=== PATIENT | male | born 1975 | race Hispanic/Latino ===

== ENCOUNTER 2018-06-10 00:02 | Emergency (ER) | payer BC ==
[2018-06-10] MEDS ORDERED: NA CHLORIDE 0.9% 1,000 ML ONE (01:13)
[2018-06-10 02:20] LABS: Absolute Neutrophil 9.4 K/uL (1.8-8.0); Basophils % 0.3 % (0-1.3); Eosinophils % 5.4 % (0-4.4); Hematocrit 50.6 % (39.6-49.0); Lymphocytes % 15.5 % (15.3-44.8); MPV 7.6 fL (7.6-11.3); Monocytes % 7.4 % (3.3-12.3); Protime INR 1.02; RBC Red Blood Cell Count 5.77 M/uL (4.33-5.43)
[2018-06-10 02:40] LABS: ALT/SGPT 39 U/L (12-78); AST/SGOT 36 U/L (15-37); Alkaline Phosphatase 73 U/L (45-117); BUN Blood Urea Nitrogen 20 mg/dL (7-18); Bicarbonate 26 mmol/L (21-32); Bilirubin Direct 0.1 mg/dL (0-0.2); Bilirubin Total 0.6 mg/dL (0.2-1.0); Glucose Level 115 mg/dL (74-106); Magnesium 2.2 mg/dL (1.8-2.4); NT PRO-BNP 7 pg/mL (<125); Potassium 3.7 mmol/L (3.5-5.1); Protein, Total 7.8 g/dL (6.4-8.2); Sodium Level 140 mmol/L (136-145); Troponin (Emerg Dept Use Only) < 0.02 ng/mL (0.0-0.045)
[2018-06-10] MEDS ORDERED: FAMOTIDINE 20 MG/2 ML VIAL IV ONE (04:54)
[2018-06-10] MEDS ORDERED: ONDANSETRON 4 MG/2 ML VIAL ONE (04:54)
--- NOTE | 2018-06-10 06:18 | ER ---
Nurse's Notes [facility] Name: Yves Sousa Age: 43 yrs Sex: Male : 1975 Arrival Date: 06/10/2018 Time: 00:03 Bed 19 Private MD: Diagnosis: Gastritis, unspecified, with bleeding;Vomiting, unspecified Presentation: 06/10 00:30 Presenting complaint: Patient states: "since a week now I've been vomiting mucus and cc3 today there's a streak of blood in my vomitus. I've also been having chest pressure and pain to my left upper abdominal area". Transition of care: patient was not received from another setting of care. Onset of symptoms was June 10, 2018. Risk Assessment: Do you want to hurt yourself or someone else? Patient reports no desire to harm self or others. Initial Sepsis Screen: Does the patient meet any 2 criteria? No. Patient's initial sepsis screen is negative. Does the patient have a suspected source of infection? No. Patient's initial sepsis screen is negative. Care prior to arrival: None. 00:30 Method Of Arrival: Ambulatory cc3 00:30 Acuity: WILMER 3 cc3 Triage Assessment: 00:30 General: Appears in no apparent distress. uncomfortable, Behavior is calm, cooperative, cc3 appropriate for age. Pain: Complains of pain in chest Quality of pain is described as pressure, Pain began suddenly. EENT: No signs and/or symptoms were reported regarding the EENT system. Neuro: Level of Consciousness is awake, alert, obeys commands, Oriented to person, place, time, situation, Appropriate for age. Cardiovascular: Patient's skin is warm and dry. Respiratory: Airway is patent Respiratory effort is even, unlabored, Respiratory pattern is regular, symmetrical. GI: Abdomen is round non-distended, Reports upper abdominal pain, vomiting, since a week. : No signs and/or symptoms were reported regarding the genitourinary system. Derm: No signs and/or symptoms reported regarding the dermatologic system. Musculoskeletal: Circulation, motion, and sensation intact. Range of motion: intact in all extremities. Historical: - Allergies: 00:30 No Known Allergies; cc3 - Home Meds: 00:30 clarithromycin 500 mg Oral tab 1 tab every 12 hours [Active]; ondansetron HCl 8 mg Oral cc3 tab PRN [Active]; - PSHx: 00:30 Appendectomy; right knee surgery; cc3 - Immunization history:: Adult Immunizations not up to date. - Social history:: Smoking status: Patient/guardian denies using tobacco, never smoked. - Ebola Screening: : No symptoms or risks identified at this time. Screenin:30 Abuse screen: Denies threats or abuse. Denies injuries from another. Nutritional cc3 screening: No deficits noted. Tuberculosis screening: No symptoms or risk factors identified. Fall Risk Ambulatory Aid- None/Bed Rest/Nurse Assist (0 pts). Gait- Normal/Bed Rest/Wheelchair (0 pts) Mental Status- Oriented to own ability (0 pts). Assessment: 00:30 General: see triage assessment. cc3 01:18 Reassessment: Patient appears in no apparent distress at this time. Patient and/or cc3 family updated on plan of care and expected duration. Pain level reassessed. Patient is alert, oriented x 3, equal unlabored respirations, skin warm/dry/pink. 02:27 Reassessment: Patient appears in no apparent distress at this time. Patient and/or cc3 family updated on plan of care and expected duration. Pain level reassessed. Patient is alert, oriented x 3, equal unlabored respirations, skin warm/dry/pink. 03:25 Reassessment: Patient appears in no apparent distress at this time. Patient and/or cc3 family updated on plan of care and expected duration. Pain level reassessed. Patient is alert, oriented x 3, equal unlabored respirations, skin warm/dry/pink. 04:22 Reassessment: Patient appears in no apparent distress at this time. Patient and/or cc3 family updated on plan of care and expected duration. Pain level reassessed. Patient is alert, oriented x 3, equal unlabored respirations, skin warm/dry/pink. 05:15 Reassessment: Patient appears in no apparent distress at this time. Patient and/or cc3 family updated on plan of care and expected duration. Pain level reassessed. Patient is alert, oriented x 3, equal unlabored respirations, skin warm/dry/pink. 06:18 Reassessment: Patient appears in no apparent distress at this time. Patient and/or cc3 family updated on plan of care and expected duration. Pain level reassessed. Patient is alert, oriented x 3, equal unlabored respirations, skin warm/dry/pink. 06:30 Reassessment: Patient appears in no apparent distress at this time. Patient and/or cc3 family updated on plan of care and expected duration. Pain level reassessed. Patient is alert, oriented x 3, equal unlabored respirations, skin warm/dry/pink. Dr. Aleman discharged home the patient with prescription given. IV cannula removed and patient left ER vitally stable and ambulatory. Patient denies pain at this time. Patient states feeling better. Patient states symptoms have improved. Vital Signs: 00:30 BP 133 / 95; Pulse 104; Resp 20 S; Temp 98.4(O); Pulse Ox 93% on R/A; Weight 95.25 kg cc3 (R); Height 5 ft. 8 in. (172.72 cm) (R); Pain 8/10; 01:30 BP 131 / 86; Pulse 96; Resp 18 S; Pulse Ox 97% on 2 lpm NC; cc3 02:00 BP 135 / 80; Pulse 97; Resp 17 S; Pulse Ox 96% on 2 lpm NC; cc3 03:25 BP 133 / 84; Pulse 93; Resp 18 S; Pulse Ox 97% on 2 lpm NC; cc3 04:15 BP 140 / 87; Pulse 92; Resp 17 S; Pulse Ox 97% on 2 lpm NC; cc3 05:17 BP 130 / 80; Pulse 85; Resp 17 S; Pulse Ox 98% on 2 lpm NC; cc3 06:18 BP 136 / 58; Pulse 86; Resp 18 S; Pulse Ox 99% on 2 lpm NC; cc3 00:30 Body Mass Index 31.93 (95.25 kg, 172.72 cm) cc3 ED Course: 00:03 Patient arrived in ED. do 00:30 Arm band placed on right wrist. Patient notified of wait time. cc3 00:30 Patient has correct armband on for positive identification. Placed in gown. Bed in low cc3 position. Call light in reach. Side rails up X2. cloth pattern maker on. Pulse ox on. NIBP on. 00:39 Brenda Martinez is Primary Nurse. cc3 00:53 Diogo Aleman MD is Attending Physician. tw4 00:53 XRAY Chest (1 view) In Process Unspecified. EDMS 00:56 Triage completed. cc3 01:10 Inserted saline lock: 20 gauge in right antecubital area, using aseptic technique. cc3 Blood collected. 06:30 No provider procedures requiring assistance completed. IV discontinued, intact, cc3 bleeding controlled, No redness/swelling at site. Pressure dressing applied. Administered Medications: 01:10 Drug: NS 0.9% 1000 ml Route: IV; Rate: 75 ml/hr; Site: right antecubital; cc3 04:40 Drug: Pepcid 20 mg Route: IVP; Site: right antecubital; cc3 05:30 Follow up: Response: No adverse reaction; Pain is decreased cc3 04:45 Drug: Zofran 4 mg Route: IVP; Site: right antecubital; cc3 05:30 Follow up: Response: No adverse reaction; Nausea is decreased cc3 Outcome: 06:18 Discharge ordered by . wesly 06:30 Discharged to home ambulatory. cc3 06:30 Condition: stable 06:30 Discharge instructions given to patient, Instructed on discharge instructions, follow up and referral plans. medication usage, Demonstrated understanding of instructions, follow-up care, medications, Prescriptions given X 2. 06:33 Patient left the ED. cc3 Signatures: Dispatcher [employer] EDMS Belkis Tilley Terrence, MD MD tw4 Brenda Martinez cc3
--- NOTE | 2018-06-10 06:18 | EDPHYS ---
Physician Documentation [facility] Name: Yves Sousa Age: 43 yrs Sex: Male : 1975 Arrival Date: 06/10/2018 Time: 00:03 Bed 19 Private MD: ED Physician Diogo Aleman HPI: 06/10 04:48 This 43 yrs old Male presents to ER via Ambulatory with complaints of Vomiting.tw4 04:48 The patient presents to the emergency department with nausea, that is mild, vomiting. tw4 Onset: The symptoms/episode began/occurred today. The symptoms are aggravated by nothing. The symptoms are alleviated by nothing. Associated signs and symptoms: The patient has no apparent associated signs or symptoms. Severity of symptoms: At their worst the symptoms were moderate in the emergency department the symptoms are unchanged. The patient has not experienced similar symptoms in the past. Historical: - Allergies: 00:30 No Known Allergies; cc3 - Home Meds: 00:30 clarithromycin 500 mg Oral tab 1 tab every 12 hours [Active]; ondansetron HCl 8 mg Oral cc3 tab PRN [Active]; - PSHx: 00:30 Appendectomy; right knee surgery; cc3 - Immunization history:: Adult Immunizations not up to date. - Social history:: Smoking status: Patient/guardian denies using tobacco, never smoked. - Ebola Screening: : No symptoms or risks identified at this time. ROS: 04:48 Constitutional: Negative for fever, chills, and weight loss, Eyes: Negative for injury, tw4 pain, redness, and discharge, Cardiovascular: Negative for chest pain, palpitations, and edema, Respiratory: Negative for shortness of breath, cough, wheezing, and pleuritic chest pain, Back: Negative for injury and pain, MS/Extremity: Negative for injury and deformity, Skin: Negative for injury, rash, and discoloration. 04:48 Abdomen/GI: Positive for abdominal pain, nausea and vomiting, nausea, vomiting, and diarrhea, nausea, vomiting, Negative for abdominal cramps, abdominal distension, anorexia, dysphagia, hematemesis, black/tarry stool, rectal pain, rectal bleeding. Exam: 04:49 Constitutional: This is a well developed, well nourished patient who is awake, alert, tw4 and in no acute distress. Head/Face: Normocephalic, atraumatic. Chest/axilla: Normal chest wall appearance and motion. Nontender with no deformity. No lesions are appreciated. Cardiovascular: Regular rate and rhythm with a normal S1 and S2. No gallops, murmurs, or rubs. Normal PMI, no JVD. No pulse deficits. Respiratory: Lungs have equal breath sounds bilaterally, clear to auscultation and percussion. No rales, rhonchi or wheezes noted. No increased work of breathing, no retractions or nasal flaring. Abdomen/GI: Soft, non-tender, with normal bowel sounds. No distension or tympany. No guarding or rebound. No evidence of tenderness throughout. Back: No spinal tenderness. No costovertebral tenderness. Full range of motion. MS/ Extremity: Pulses equal, no cyanosis. Neurovascular intact. Full, normal range of motion. Neuro: Awake and alert, GCS 15, oriented to person, place, time, and situation. Cranial nerves II-XII grossly intact. Motor strength 5/5 in all extremities. Sensory grossly intact. Cerebellar exam normal. Normal gait. Vital Signs: 00:30 BP 133 / 95; Pulse 104; Resp 20 S; Temp 98.4(O); Pulse Ox 93% on R/A; Weight 95.25 kg cc3 (R); Height 5 ft. 8 in. (172.72 cm) (R); Pain 8/10; 01:30 BP 131 / 86; Pulse 96; Resp 18 S; Pulse Ox 97% on 2 lpm NC; cc3 02:00 BP 135 / 80; Pulse 97; Resp 17 S; Pulse Ox 96% on 2 lpm NC; cc3 03:25 BP 133 / 84; Pulse 93; Resp 18 S; Pulse Ox 97% on 2 lpm NC; cc3 04:15 BP 140 / 87; Pulse 92; Resp 17 S; Pulse Ox 97% on 2 lpm NC; cc3 05:17 BP 130 / 80; Pulse 85; Resp 17 S; Pulse Ox 98% on 2 lpm NC; cc3 06:18 BP 136 / 58; Pulse 86; Resp 18 S; Pulse Ox 99% on 2 lpm NC; cc3 00:30 Body Mass Index 31.93 (95.25 kg, 172.72 cm) cc3 MDM: 01:35 Patient medically screened. tw4 06:18 Differential diagnosis: Nonspecific abd pain, gastritis, cholecystitis. Data reviewed: tw4 vital signs, nurses notes. Data interpreted: shelter monitor: rhythm is normal sinus rhythm, Pulse oximetry: Interpretation: normal. Counseling: I had a detailed discussion with the patient and/or guardian regarding: the historical points, exam findings, and any diagnostic results supporting the discharge/admit diagnosis. Medication response: Response to treatment: the patient's symptoms have resolved after treatment, the patient's pain is gone, and as a result, I will discharge patient. Special discussion: I discussed with the patient/guardian in detail that at this point there is no indication for admission to the hospital. It is understood, however, that if the symptoms persist or worsen the patient needs to return immediately for re-evaluation. 06/10 00:33 Order name: Basic Metabolic Panel w 06/10 00:33 Order name: CBC with Diff w 06/10 00:33 Order name: LFT's w 06/10 00:33 Order name: Magnesium snw 06/10 00:33 Order name: NT PRO-BNP; Complete Time: 04:32 snw 06/10 04:32 Interpretation: Normal except: NT PRO-BNP 7. tw06/10 00:33 Order name: PT-INR; Complete Time: 04:32 snw 06/10 04:32 Interpretation: Within normal limits: PT 12.0. 06/10 00:33 Order name: Troponin (emerg Dept Use Only); Complete Time: 04:32 snw 06/10 04:32 Interpretation: Within normal limits: TROPED < 0.02. 06/10 00:33 Order name: DD; Complete Time: 04:32 snw 06/10 04:32 Interpretation: Within normal limits: D-DIMER 335. 06/10 00:33 Order name: Blood Culture Adult (2) snw 06/10 00:33 Order name: TS w 06/10 00:33 Order name: TSH snw 06/10 00:34 Order name: Basic Metabolic Panel; Complete Time: 04:31 EDMS 06/10 04:31 Interpretation: Normal except: GLUC 115; BUN 20; GFR 63. tw06/10 00:34 Order name: CBC with Automated Diff; Complete Time: 04:31 EDMS 06/10 04:31 Interpretation: Normal except: WBC 13.2; RBC 5.77; HCT 50.6. tw4 06/10 00:34 Order name: Liver (Hepatic) Function; Complete Time: 04:31 EDMS 04 04:31 Interpretation: Normal except: GLOB 3.8. tw4 06/10 00:33 Order name: XRAY Chest (1 view) snw 06/10 00:33 Order name: EKG; Complete Time: 00:35 snw 06/10 00:33 Order name: Cardiac monitoring; Complete Time: 00:46 snw 06/10 00:33 Order name: EKG - Nurse/Tech; Complete Time: 00:46 snw 06/10 00:33 Order name: IV Saline Lock; Complete Time: snw 06/10 00:33 Order name: Labs collected and sent; Complete Time: : snw 06/10 00:33 Order name: O2 Per Protocol; Complete Time: 00:46 snw 06/10 00:33 Order name: O2 Sat Monitoring; Complete Time: 00:46 snw 06/10 05:51 Order name: ABO/RH no charge EDMS EC:02 Rate is 96 beats/min. Rhythm is regular. QRS [place] is Normal. UT interval is normal. QRS tw4 interval is normal. QT interval is normal. No Q waves. T waves are Normal. No ST changes noted. Clinical impression: Normal ECG. Reviewed by me. Administered Medications: 01:10 Drug: NS 0.9% 1000 ml Route: IV; Rate: 75 ml/hr; Site: right antecubital; cc3 04:40 Drug: Pepcid 20 mg Route: IVP; Site: right antecubital; cc3 05:30 Follow up: Response: No adverse reaction; Pain is decreased cc3 04:45 Drug: Zofran 4 mg Route: IVP; Site: right antecubital; cc3 05:30 Follow up: Response: No adverse reaction; Nausea is decreased cc3 Disposition: 06/10/18 06:18 Discharged to Home. Impression: Gastritis, unspecified, with bleeding, Vomiting, unspecified. - Condition is Stable. - Discharge Instructions: Nausea and Vomiting, Adult, Gastritis, Adult, [id number], Nausea and Vomiting, Adult, [id number]. - Prescriptions for Protonix 40 mg Oral Tablet - take 1 tablet by ORAL route once daily; 30 tablet. Zofran 4 mg Oral Tablet - take 1 tablet by ORAL route every 12 hours As needed; 6 tablet. - Medication Reconciliation Form, Thank You Letter, Antibiotic Education, Prescription Opioid Use, Work release form form. - Follow up: Private Physician; When: Upon discharge from the Emergency Department; Reason: If symptoms return, Recheck today's complaints, Continuance of care. - Problem is new. - Symptoms have improved. Signatures: Dispatcher [employer] EDMS Landy Le, LUCRECIA-C MILK OF LIME SLAKER-Csnw Diogo Aleman MD MD tw4 Brenda Martinez cc3 Corrections: (The following items were deleted from the chart) 06:33 06:18 06/10/2018 06:18 Discharged to Home. Impression: Gastritis, unspecified, with cc3 bleeding; Vomiting, unspecified. Condition is Stable. Forms are Medication Reconciliation Form, Thank You Letter, Antibiotic Education, Prescription Opioid Use. Follow up: Private Physician; When: Upon discharge from the Emergency Department; Reason: If symptoms return, Recheck today's complaints, Continuance of care. Problem is new. Symptoms have improved. tw4
--- NOTE | 2018-06-10 07:42 | EKG ---
Test Date: 2018-06-10 Test Time: 00:35:08 Infrastructure Software Engineer: MEASUREMENT RESULTS: Intervals: Rate: 96 MD: 134 QRSD: 80 QT: 342 QTc: 432 Mcgregor: P: 63 MD: 134 QRS: -3 T: 43 INTERPRETIVE STATEMENTS: Normal sinus rhythm Normal ECG No previous ECG available for comparison Electronically Signed On 06-10-18 07:41:51 CDT by Tyree Chappell
--- NOTE | 2018-06-10 09:05 | RAD REPORT ---
EXAM DESCRIPTION: RAD - Chest Single View - 06/10/2018 12:53 am CLINICAL HISTORY: Chest pain COMPARISON: None. TECHNIQUE: AP portable chest image was obtained 0048 hour . FINDINGS: Lung volumes are low. No focal lung parenchymal process. No significant failure or volume overload. Heart and vasculature are normal. No measurable pleural effusion and no pneumothorax. No ac bennie bony abnormality seen. No acute aortic findings suspected. IMPRESSION: No acute cardiopulmonary process.
== END 2018-06-10 06:33 | disposition home or self-care (01) ==
LOC: ER 00:02
DX: K29.71 Gastritis, unspecified, with bleeding (principal)
CPT/HCPCS: 36415; 71045; 80048; 80076; 83735; 83880; 84443; 84484; 85025; 85379; 85610; 86850; 86900; 86901; 87040; 93005; 96374; 96375; 99284; J2405; J7030

== ENCOUNTER 2020-11-30 20:44 | Emergency (ER) | payer BC ==
[2020-11-30 21:40] LABS: Basophils % 0.5 % (0-1.3); Hematocrit 41.7 % (39.6-49.0); MPV 6.7 fL (7.6-11.3); RBC Red Blood Cell Count 5.62 M/uL (4.33-5.43)
[2020-11-30] MEDS ORDERED: NA CHLORIDE 0.9% 1,000 ML ONE ×2 (21:42→23:25)
[2020-11-30 21:43] LABS: Protime INR 1.13
[2020-11-30] MEDS ORDERED: LORazepam 2 MG/ML VIAL ONE (21:52)
[2020-11-30 21:55] LABS: ALT/SGPT 34 U/L (12-78); AST/SGOT 16 U/L (15-37); Albumin 4.1 g/dL (3.4-5.0); Alkaline Phosphatase 61 U/L (45-117); BUN Blood Urea Nitrogen 14 mg/dL (7-18); Bicarbonate 30 mmol/L (21-32); Bilirubin Direct 0.2 mg/dL (0-0.2); Bilirubin Total 0.6 mg/dL (0.2-1.0); Glucose Level 168 mg/dL (74-106); Magnesium 2.2 mg/dL (1.8-2.4); Potassium 3.4 mmol/L (3.5-5.1); Protein, Total 8.1 g/dL (6.4-8.2); Sodium Level 140 mmol/L (136-145); Troponin (Emerg Dept Use Only) < 0.02 ng/mL (0.0-0.045)
[2020-11-30 22:12] LABS: Urine Blood Negative (Negative); Urine Glucose Negative (Negative); Urine Protein Negative (Negative); Urine pH 8.5 (5.0-7.0)
[2020-11-30 22:40] LABS: Barbiturates NEGATIVE (NEGATIVE); Benzodiazepines NEGATIVE (NEGATIVE); Cocaine NEGATIVE (NEGATIVE); METHAMPHETAM NEGATIVE (NEGATIVE); Methadone NEGATIVE (NEGATIVE); Opiates NEGATIVE (NEGATIVE); Phencyclidine NEGATIVE (NEGATIVE); THC Cannibis NEGATIVE (NEGATIVE)
[2020-12-01] MEDS ORDERED: POTASSIUM 25 MEQ EFFERV TAB ONE (00:31)
[2020-12-01] MEDS ORDERED: METOPROLOL TAR 25 MG TAB ONE (01:16)
--- NOTE | 2020-12-01 02:19 | ER ---
Nurse's Notes [facility] Name: Yves Sousa Age: 45 yrs Sex: Male : 1975 Arrival Date: 11/30/2020 Time: 20:48 Bed 7 Private MD: Diagnosis: Elevated blood-pressure reading, without diagnosis of hypertension;Hyperglycemia, unspecified Presentation: 11/30 20:59 Chief complaint: Patient states: Reports feeling bad about 1800 this evening, feeling lp1 light headed, anxious; Reports check BP at [facility] and reports 193/122; reports taking diet pill x 2 months, no other hx. Coronavirus screen: At this time, the client does not indicate any symptoms associated with coronavirus-19. Ebola Screen: No symptoms or risks identified at this time. Risk Assessment: Do you want to hurt yourself or someone else? Patient reports no desire to harm self or others. Onset of symptoms was November 30, 2020 at 18:00. 20:59 Method Of Arrival: Ambulatory lp1 20:59 Acuity: WILMER 3 lp1 21:12 Initial Sepsis Screen: Does the patient meet any 2 criteria? No. Patient's initial cw2 sepsis screen is negative. 21:12 Initial Sepsis Screen: Does the patient have a suspected source of infection? No. cw2 Patient's initial sepsis screen is negative. 12/01 02:34 Note PT UP FOR DISCHARGE AT THIS TIME. PT AWAKE ALERT AOX4 AMBULATING ALONE WITH A cw2 STEADY GAIT. DISCHARGE INSTRUCTIONS DISCUSSED WITH PT AND SON. ALL QUESTIONS ANSWERED AND NO CONCERNS VERBALIZED AT THIS TIME. PT ADVISED TO RETURN TO AT ANYTIME. PT ACKNOWLEDGES. IV DC'D. CATHETER FULLY INTACT. PT STABLE ON DISCHARGE. Triage Assessment: 11/30 21:12 General: Appears in no apparent distress. Behavior is calm, cooperative. cw2 Historical: - Allergies: 21:01 No Known Allergies; lp1 - Home Meds: 21:01 "diet pill" [Active]; lp1 - PMHx: 21:01 None; lp1 - PSHx: 21:01 None; lp1 - Immunization history:: Adult Immunizations up to date. - Social history:: Smoking status: Patient denies any tobacco usage or history of. Screenin:01 Abuse screen: Denies threats or abuse. Denies injuries from another. Nutritional lp1 screening: No deficits noted. Tuberculosis screening: No symptoms or risk factors identified. Fall Risk None identified. Assessment: 21:12 General: Appears in no apparent distress. Behavior is calm, cooperative. Pain: Denies cw2 pain. Neuro: No deficits noted. Cardiovascular: No deficits noted. Respiratory: No deficits noted. GI: No deficits noted. Vital Signs: 20:59 Weight 97.98 kg (R); Height 5 ft. 8 in. (172.72 cm); Pain 0/10; lp1 23:38 BP 164 / 107; Pulse 105; Resp 15; Pulse Ox 99% on R/A; cw2 20:59 Body Mass Index 32.84 (97.98 kg, 172.72 cm) lp1 ED Course: 20:48 Patient arrived in ED. ja2 20:50 Stew Yu PA is PHCP. cp 20:50 Morro Osborn MD is Attending Physician. cp 20:55 Cory Bravo RN is Primary Nurse. cw2 21:01 Triage completed. lp1 21:01 Arm band placed on. lp1 21:10 No apparent distress. cw2 21:10 Placed in gown. Bed in low position. Side rails up X2. site monitor on. Pulse ox on. cw2 NIBP on. Door closed. Noise minimized. Lights dimmed. Moved to private room. 21:10 No provider procedures requiring assistance completed. Initial lab(s) drawn, by ED cw2 staff, sent to lab. Inserted saline lock: 20 gauge in right antecubital area, using aseptic technique. Blood collected. 21:18 Basic Metabolic Panel Sent. cw2 21:18 CBC with Automated Diff Sent. cw2 21:18 Basic Metabolic Panel Sent. cw2 21:18 CBC with Diff Sent. cw2 22:03 UDS Sent. cw2 22:19 CT Head Brain wo Cont Sent. wg 22:44 CT Head Brain wo Cont In Process Unspecified. EDMS 23:45 XRAY Chest (1 view) In Process Unspecified. EDMS 12/01 01:30 CT Head Angio In Process Unspecified. EDMS 01:30 CT Neck Angio In Process Unspecified. EDMS 02:33 IV discontinued. cw2 Administered Medications: 11/30 21:14 Drug: NS 0.9% 1000 ml Route: IV; Rate: 1 bolus; Site: right antecubital; cw2 21:29 Drug: Ativan (LORazepam) 0.5 mg Route: IVP; Site: right antecubital; cw2 22:59 Drug: NS 0.9% 1000 ml Route: IV; Rate: 1 bolus; Site: right antecubital; cw2 12/01 00:08 Drug: Potassium Effervescent Tablet 50 mEq Route: PO; cw2 00:51 Drug: Metoprolol 25 mg Route: PO; cw2 Outcome: 11/30 21:10 Condition: good cw2 12/01 02:18 Discharge ordered by . cp 02:33 Discharge instructions given to patient, family, Instructed on discharge instructions, cw2 follow up and referral plans. Demonstrated understanding of instructions, follow-up care, Prescriptions given X 02:34 Discharged to home ambulatory. cw2 02:36 Patient left the ED. cw2 Signatures: Dispatcher [employer] EDMS Josi Moseley RN RN lp1 Stew Yu PA PA Dariel Blackman RN wg Alexander, Jessica [facility] Cory Bravo RN RN cw2
--- NOTE | 2020-12-01 02:19 | EDPHYS ---
Physician Documentation [facility] Name: Yves Sousa Age: 45 yrs Sex: Male : 1975 Arrival Date: 11/30/2020 Time: 20:48 Bed 7 Private MD: ED Physician Morro Osborn HPI: 11/30 21:15 This 45 yrs old Male presents to ER via Ambulatory with complaints of High cp Blood Pressure, Blurred Vision, Dizziness. 21:15 The patient has elevated blood pressure and discovered this at [facility]. cp 21:15 Onset: The symptoms/episode began/occurred today. cp 21:15 Severity of symptoms: At its worst the blood pressure was 193 mm Hg. cp 21:15 Patient reports taking prescribed Phentermine for weight loss, denies any history of cp HTN or being prescribed blood pressure medication in the past. Historical: - Allergies: 21:01 No Known Allergies; lp1 - Home Meds: 21:01 "diet pill" [Active]; lp1 - PMHx: 21:01 None; lp1 - PSHx: 21:01 None; lp1 - Immunization history:: Adult Immunizations up to date. - Social history:: Smoking status: Patient denies any tobacco usage or history of. ROS: 21:20 Neuro: Positive for dizziness, lightheaded, Negative for altered mental status, cp headache, numbness, syncope, tingling, weakness. 21:20 Cardiovascular: Negative for chest pain, palpitations. cp 21:20 Respiratory: Negative for cough, shortness of breath, wheezing. 21:20 Eyes: Negative for injury, pain, redness, and discharge. cp 21:20 Constitutional: Negative for body aches, chills, fever, poor PO intake. 21:20 ENT: Negative for ear pain, sore throat, difficulty swallowing, difficulty handling secretions. 21:20 Neck: Negative for pain with movement, pain at rest, stiffness. 21:20 Abdomen/GI: Negative for abdominal pain, nausea, vomiting, and diarrhea. 21:20 All other systems are negative. Exam: 21:10 ECG was reviewed by the Attending Physician. cp 21:25 Constitutional: The patient appears in no acute distress, alert, awake, cp non-diaphoretic, non-toxic, well developed, well nourished, overweight 21:25 Head/Face: Normocephalic, atraumatic. cp 21:25 Eyes: Periorbital structures: appear normal, Pupils: equal, round, and reactive to light and accomodation, Extraocular movements: intact throughout, Conjunctiva: normal, no exudate, no injection, Sclera: no appreciated abnormality, Lids and lashes: appear normal, bilaterally. 21:25 ENT: External ear(s): are unremarkable, Ear canal(s): are normal, clear, TM's: dullness, bilaterally, Nose: is normal, Mouth: Lips: moist, Oral mucosa: pink and intact, moist, Posterior pharynx: Airway: no evidence of obstruction, patent. 21:25 Neck: ROM/movement: is normal, is supple, without pain, no range of motions limitations, no nuchal rigidity. 21:25 Chest/axilla: Inspection: normal, Palpation: is normal, no crepitus, no tenderness. 21:25 Cardiovascular: Rate: tachycardic, Rhythm: regular, Heart sounds: murmur, not appreciated, Edema: is not appreciated, JVD: is not appreciated. 21:25 Respiratory: the patient does not display signs of respiratory distress, Respirations: normal, no use of accessory muscles, no retractions, labored breathing, is not present, Breath sounds: are clear throughout, no decreased breath sounds, no stridor, no wheezing. 21:25 Abdomen/GI: Inspection: abdomen appears normal, Palpation: abdomen is soft and non-tender, in all quadrants. 21:25 Neuro: Orientation: to person, place \\T\\ time. Mentation: is normal, Cerebellar function: is grossly normal, Motor: moves all fours, strength is normal, Sensation: is normal. Vital Signs: 20:59 Weight 97.98 kg (R); Height 5 ft. 8 in. (172.72 cm); Pain 0/10; lp1 23:38 BP 164 / 107; Pulse 105; Resp 15; Pulse Ox 99% on R/A; cw2 20:59 Body Mass Index 32.84 (97.98 kg, 172.72 cm) lp1 MDM: 21:22 Patient medically screened. cp 22:00 Differential diagnosis: hypertensive crisis, Malignant HTN, CVA, intracerebral cp hemorrhage, illegal drug use. 12/01 02:15 Data reviewed: vital signs, nurses notes, lab test result(s), EKG, radiologic studies, cp CT scan, plain films, and as a result, I will discharge patient. 02:15 Test interpretation: by ED physician or midlevel provider: ECG, plain radiologic cp studies. Counseling: I had a detailed discussion with the patient and/or guardian regarding: the historical points, exam findings, and any diagnostic results supporting the discharge/admit diagnosis, the presence of at least one elevated blood pressure reading (>120/80) during this emergency department visit, lab results, radiology results, the need for outpatient follow up, for definitive care, a family practitioner, to return to the emergency department if symptoms worsen or persist or if there are any questions or concerns that arise at home. Response to treatment: patient is well hydrated. blood pressure improved and patient reports symptoms resolved, and as a result, I will discharge patient. 11/30 21:11 Order name: Basic Metabolic Panel cp 11/30 21:11 Order name: CBC with Diff cp 11/30 21:11 Order name: LFT's; Complete Time: 22:52 cp 11/30 22:53 Interpretation: Normal except: GLOB 4.0; A/G 1.0. cp 11/30 21:11 Order name: Magnesium; Complete Time: 22:52 cp 11/30 21:11 Order name: PT-INR; Complete Time: 22:52 cp 11/30 21:11 Order name: Troponin (emerg Dept Use Only); Complete Time: 22:52 cp 11/30 21:11 Order name: CT Head Brain wo Cont cp 11/30 21:11 Order name: Basic Metabolic Panel; Complete Time: 22:52 EDMS 11/30 22:53 Interpretation: Normal except: K 3.4; GLUC 168; CRE 1.35; GFR 58. cp 11/30 21:11 Order name: CBC with Automated Diff; Complete Time: 22:52 EDMS 11/30 22:54 Interpretation: Normal except: WBC 15.10; RBC 5.62; HGB 13.2; MCV 74.2; MCH 23.5; MCHC cp 31.7; PLT 423; RDW 16.8; MPV 6.7; JUAN% 80.6; LYM% 13.0; NEUT A 12.2. 11/30 21:23 Order name: UDS; Complete Time: 22:52 cp 11/30 22:54 Interpretation: Reviewed. cp 11/30 21:29 Order name: Glucose, Ancillary Testing; Complete Time: 22:52 EDMS 11/30 22:11 Order name: Urine Dipstick-Ancillary; Complete Time: 22:52 EDMS 11/30 22:55 Order name: XRAY Chest (1 view) cp 12/01 00:24 Order name: CT Head Angio cp 11/30 21:11 Order name: EKG; Complete Time: 21:11 cp 11/30 21:11 Order name: Cardiac monitoring; Complete Time: 21:29 cp 11/30 21:11 Order name: EKG - Nurse/Tech; Complete Time: 21:31 cp 11/30 21:11 Order name: IV Saline Lock; Complete Time: 21:19 cp 11/30 21:11 Order name: Labs collected and sent; Complete Time: 21:19 cp 11/30 21:11 Order name: O2 Per Protocol; Complete Time: 21:19 cp 11/30 21:11 Order name: O2 Sat Monitoring; Complete Time: 21:19 cp 11/30 21:23 Order name: Urine Dipstick-Ancillary (obtain specimen); Complete Time: 22:19 cp 12/01 00:24 Order name: CT Neck Angio cp EC/02 21:10 Rate is 105 beats/min. Rhythm is regular. ID interval is normal. QRS interval is cp normal. Interpreted by me. Reviewed by me. Administered Medications: 21:14 Drug: NS 0.9% 1000 ml Route: IV; Rate: 1 bolus; Site: right antecubital; cw2 21:29 Drug: Ativan (LORazepam) 0.5 mg Route: IVP; Site: right antecubital; cw2 22:59 Drug: NS 0.9% 1000 ml Route: IV; Rate: 1 bolus; Site: right antecubital; cw2 12/01 00:08 Drug: Potassium Effervescent Tablet 50 mEq Route: PO; cw2 00:51 Drug: Metoprolol 25 mg Route: PO; cw2 Disposition: 07:06 Co-signature as Attending Physician, Morro Osborn MD. [email or web address] Disposition Summary: 12/01/20 02:18 Discharge Ordered Location: Home cp Problem: new cp Symptoms: have improved cp Condition: Stable cp Diagnosis - Elevated blood-pressure reading, without diagnosis of hypertension cp - Hyperglycemia, unspecified cp Followup: cp - With: Private Physician - When: 1 - 2 days - Reason: Recheck today's complaints Discharge Instructions: - Discharge Summary Sheet cp - Blood Glucose Monitoring, Adult cp - Aspirin and Your Heart cp - DASH Eating Plan cp - Form - Blood Pressure Record Sheet cp Forms: - Medication Reconciliation Form cp - Thank You Letter cp - Antibiotic Education cp - Prescription Opioid Use cp Signatures: Dispatcher [employer] EDJosi Donald RN RN lp1 Stew Yu PA PA cp Morro Osborn MD MD mh7 Cory Bravo RN RN cw2 Corrections: (The following items were deleted from the chart) 12/02 00:41 00:40 Neuro: Positive for lightheaded, cp cp
[2020-12-01 02:43] VITALS: BP 164/107; O2SAT 99
--- NOTE | 2020-12-01 07:55 | RAD REPORT ---
EXAM DESCRIPTION: RAD - Chest Single View - 11/30/2020 11:46 pm CLINICAL HISTORY: elevated blood pressure COMPARISON: Chest Single View dated 06/10/2018 FINDINGS: Lines: None. Lungs: No evidence of edema or pneumonia. Pleural: No significant pleural effusions or pneumothorax. Cardiac: The heart size is within normal limits. Bones: No acute fractures. Other: IMPRESSION: No acute cardiopulmonary disease.
--- NOTE | 2020-12-02 10:58 | RAD REPORT ---
EXAM DESCRIPTION: CT - Head angio - 12/01/2020 6:03 am CLINICAL HISTORY: 45 years, Male, lightheaded COMPARISON: Previous head without contrast CT performed earlier. TECHNIQUE: Multiple transaxial tomograms from the aortic arch through the brain were performed after administration of a 100 cc of Omnipaque 350 at a rate of 5 cc/s for complete opacification of the ca rotid arteries and intracranial vessels. Subsequent 2-D and 3-D multiplanar reformats, volume rendering technique and maximum intensity projec tion images were generated and reviewed. Stenosis measurements were performed according to NASCET cri teria. This exam was performed according to our departmental dose-optimization protocol, which includes auto mated exposure control, adjustment of the mA and/or kV according to patient size and/or use of iterat vitor reconstruction technique. FINDINGS: Ascending aorta: There is a normal branching pattern of the great vessels off the arch. There are codominant vertebral arteries which demonstrate normal opacification. No great vessel o rigin stenosis is identified. Right carotid artery: Normal opacification is demonstrated within the right common carotid artery a nd at the carotid bifurcation. The right carotid bulb, proximal, mid and distal portions of the right internal carotid artery demonstrate to be unremarkable. There is no evidence for stenosis and/or occ lusion. Left carotid artery: Normal opacification is demonstrated within the left common carotid artery an d at the carotid bifurcation. The left carotid bulb, proximal, mid and distal portions of the left in ternal carotid artery demonstrate to be unremarkable. There is no evidence for stenosis and/or occlus ion. Intracranial circulation: Intracranial portions of the internal carotid arteries the cavernous sinus portions Of the demonstrates no focal areas of significant stenosis. There is normal opacification within the anterior circulation without evidence of intracranial aneurysm. The anterior cerebral arteries, mid dle cerebral arteries and its branches demonstrate normal opacification with no evidence for signific ant stenosis aneurysm and/or occlusion. There is normal venous drainage with no evidence for sinus ve in thrombosis. Vertebrobasilar system: The posterior circulation demonstrate codominant bilateral vertebral arteries with no evidence for significant stenosis and/or evidence for significant dissection. The vertebroba silar system and DIE REPAIR MACHINIST demonstrate to be normal with no evidence for aneurysm and/or occlusion. Grossly the brain parenchyma demonstrate normal lan-white matter differentiation with no evidence fo r mass effect and/or midline shift. There is no evidence for abnormal parenchymal enhancing lesions. The skull base and intracranial structures demonstrate to be within normal limits. Lung apex: No gross abnormalities are noted within the apices. IMPRESSION: No evidence for significant stenosis and/or occlusion of the bilateral internal carotid arteries. No definitive aneurysm, dissection or significant stenosis of the [place]. Electronically signed by: Carlyle Gloria MD 12/01/2020 1:45 AM CDT Due to temporary technical issues with the PACS/Fluency reporting system, reports are being signed by the in house radiologist without review as a courtesy to ensure prompt reporting. The interpreting r adiologist is fully responsible for the content of the report.
--- NOTE | 2020-12-02 11:20 | RAD REPORT ---
EXAM DESCRIPTION: CT - Neck Angio - 12/01/2020 6:03 am CLINICAL HISTORY: 45 years, Male, lightheaded COMPARISON: Previous head without contrast CT performed earlier. TECHNIQUE: Multiple transaxial tomograms from the aortic arch through the brain were performed after administration of a 100 cc of Omnipaque 350 at a rate of 5 cc/s for complete opacification of the ca rotid arteries and intracranial vessels. Subsequent 2-D and 3-D multiplanar reformats, volume rendering technique and maximum intensity projec tion images were generated and reviewed. Stenosis measurements were performed according to NASCET cri teria. This exam was performed according to our departmental dose-optimization protocol, which includes auto mated exposure control, adjustment of the mA and/or kV according to patient size and/or use of iterat vitor reconstruction technique. FINDINGS: Ascending aorta: There is a normal branching pattern of the great vessels off the arch. There are codominant vertebral arteries which demonstrate normal opacification. No great vessel o rigin stenosis is identified. Right carotid artery: Normal opacification is demonstrated within the right common carotid artery a nd at the carotid bifurcation. The right carotid bulb, proximal, mid and distal portions of the right internal carotid artery demonstrate to be unremarkable. There is no evidence for stenosis and/or occ lusion. Left carotid artery: Normal opacification is demonstrated within the left common carotid artery an d at the carotid bifurcation. The left carotid bulb, proximal, mid and distal portions of the left in ternal carotid artery demonstrate to be unremarkable. There is no evidence for stenosis and/or occlus ion. Intracranial circulation: Intracranial portions of the internal carotid arteries the cavernous sinus portions Of the demonstrates no focal areas of significant stenosis. There is normal opacification within the anterior circulation without evidence of intracranial aneurysm. The anterior cerebral arteries, mid dle cerebral arteries and its branches demonstrate normal opacification with no evidence for signific ant stenosis aneurysm and/or occlusion. There is normal venous drainage with no evidence for sinus ve in thrombosis. Vertebrobasilar system: The posterior circulation demonstrate codominant bilateral vertebral arteries with no evidence for significant stenosis and/or evidence for significant dissection. The vertebroba silar system and AMMONIUM NITRATE NEUTRALIZER demonstrate to be normal with no evidence for aneurysm and/or occlusion. Grossly the brain parenchyma demonstrate normal lan-white matter differentiation with no evidence fo r mass effect and/or midline shift. There is no evidence for abnormal parenchymal enhancing lesions. The skull base and intracranial structures demonstrate to be within normal limits. Lung apex: No gross abnormalities are noted within the apices. IMPRESSION: No evidence for significant stenosis and/or occlusion of the bilateral internal carotid arteries. No definitive aneurysm, dissection or significant stenosis of the [place]. Electronically signed by: Carlyle Gloria MD 12/01/2020 1:45 AM CDT Due to temporary technical issues with the PACS/Fluency reporting system, reports are being signed by the in house radiologist without review as a courtesy to ensure prompt reporting. The interpreting r adiologist is fully responsible for the content of the report.
--- NOTE | 2020-12-02 11:23 | RAD REPORT ---
EXAM DESCRIPTION: CT - Head Brain Wo Cont - 12/01/2020 6:01 am CLINICAL HISTORY: 45 years Male lightheaded, elevated blood pressure COMPARISON: None TECHNIQUE: Contiguous axial images of the brain were obtained without the administration of intraven ous contrast.This exam was performed according to our departmental dose-optimization program which in cludes use of Automated Exposure Control, adjustment of the mA and/or kV according to patient size an d/or use of iterative reconstruction technique.DLP: 850 mGy*cm FINDINGS: Brain: Bifrontal encephalomalacia, left greater than white No acute intracranial hemorrhag e. No extra-axial collection. No mass effect or herniation.Ventricles: Within normal limits in size.G lobes and orbits: No acute abnormality.Bones: No acute osseous findingParanasal sinuses: Paranasal si nuses are clear.Mastoid air cells: Well pneumatized.Soft tissues: Within normal limits IMPRESSION: No acute intracranial hemorrhage, hydrocephalus or herniation. Bifrontal encephalomalaci a. Electronically signed by: Giovanny Harris DO 11/30/2020 10:59 PM CDT Due to temporary technical issues with the PACS/Fluency reporting system, reports are being signed by the in house radiologist without review as a courtesy to ensure prompt reporting. The interpreting r adiologist is fully responsible for the content of the report.
== END 2020-12-01 02:36 | disposition home or self-care (01) ==
LOC: ER 20:44
DX: I10 Essential (primary) hypertension (principal); R03.0 Elevated blood-pressure reading, without diagnosis of hypertension; E78.1 Pure hyperglyceridemia
CPT/HCPCS: 85025; 80048; 36415; 83735; 85610; 82947; 80076; 81003; 84484; 80307; 70450; 70496; 70498; 71045; 96374; 99284; Q9967; J7030 ×2

== ENCOUNTER 2021-08-21 13:58 | Emergency (ER) | payer SELFPAY ==
--- OUTSIDE RECORDS SUMMARY | 2021-08-21 14:01 | XMS REPORT | Continuity of Care Document ---
:1975 Author Organization [facility] t Address [address] [place] [address] [address] [place] [address] Care Team Providers Name Role Phone DIONI BRISCOE Primary Care Physician Unavailable CAREN GARCIA Attending Clinician Unavailable UNKNOWN, ATTENDING Attending Clinician Unavailable CAREN GARCIA Admitting Clinician Unavailable Payers Payer Name Policy Type Policy Number Effective Date Expiration Date S [facility] - [id number] 2019 00:00:00 OUT OF STATE Problems This patient has no known problems. Allergies, Adverse Reactions, Alerts Allergy Allergy Status Severity Reaction(s) Onset Inactive Treating Comm ents Source Name Type Date Date Clinician NO KNOWN Drug Active [facility] ALLERGIE Class [facility] Medications This patient has no known medications. Procedures This patient has no known procedures. Encounters Start End Encounter Admission Attending Care Care Encounter Source Date/Time Date/Time Type Type Clinicians Facility Department ID 2019-04-30 2019-04-30 Emergency X [facility] ERT [id number] [facility] 19:29:18 22:47:00 CAREN [facility] 2019-04-30 2019-04-30 Outpatient R ERIKA, [facility] [id number] 18:00:00 18:00:00 ATTENDING [facility] Results This patient has no known results.
[2021-08-21] MEDS ORDERED: NA CHLORIDE 0.9% 1,000 ML ONE (15:30)
[2021-08-21] MEDS ORDERED: ONDANSETRON 4 MG/2 ML VIAL ONE (15:30)
[2021-08-21 15:48] LABS: Absolute Lymphocytes (CBC) 1.2 K/uL (0.7-4.9); Lymphocytes % 11.7 % (15.3-44.8); MPV 6.4 fL (7.6-11.3); RBC Red Blood Cell Count 5.76 M/uL (4.33-5.43)
[2021-08-21 16:12] LABS: Albumin 3.6 g/dL (3.4-5.0); Bilirubin Total 0.7 mg/dL (0.2-1.0); Potassium 3.4 mmol/L (3.5-5.1)
[2021-08-21 16:25] LABS: Blood Morphology Comment NOTED (NOT SEEN); Hypochromasia 1+; Platelet Estimate ADEQ; White Blood Cell Scan OK (OK)
--- NOTE | 2021-08-21 17:10 | RAD REPORT ---
EXAM DESCRIPTION: CTAbdomen Pelvis W Contrast - 08/21/2021 4:58 pm CLINICAL HISTORY: Abdominal pain, acute, nonlocalized COMPARISON: No comparisons TECHNIQUE: CT of the abdomen and pelvis was performed. All CT scans are performed using dose optimization technique as appropriate and may include automated exposure control or mA/KV adjustment according to patient size. FINDINGS: Lower chest: Circumferential thickening distal esophagus. Liver: No acute abnormality or suspicious lesions. Biliary: Nonspecific gallbladder wall thickening. Stomach: No significant focal abnormality. Duodenum: No significant focal abnormality. Pancreas: No significant abnormality. Spleen: No significant abnormality. Adrenal: No suspicious lesions. Kidney/ureter: No hydronephrosis. No renal calculi. 10 mm mildly exophytic right lower pole renal les ion which is likely a cyst. Retroperitoneum: No retroperitoneal adenopathy. Vascular: No aneurysm. Bowel: Nonspecific fluid throughout the small bowel. Bowel is nondilated. Gas and fluid is present wi thin the colon.. Peritoneum: No ascites or free air. Bladder: Grossly unremarkable. Reproductive: No adnexal masses. Bones: No acute fracture. Other: n/a IMPRESSION: 1. Nonspecific fluid filled small bowel without dilatation likely representing an enteri tis. 2. Nonspecific gallbladder wall thickening. Correlate with LFT's. Ultrasound could further evaluate i f clinically indicated.
[2021-08-21 17:49] LABS: Urine Blood 2+ (Negative); Urine Glucose Negative (Negative); Urine Protein Negative (Negative)
--- NOTE | 2021-08-21 18:20 | RAD REPORT ---
EXAM DESCRIPTION: US - Abdomen Exam Limited - 08/21/2021 6:08 pm CLINICAL HISTORY: ABD PAIN COMPARISON: Abdomen Pelvis W Contrast dated 08/21/2021 FINDINGS: Cholelithiasis noted. The gallbladder wall is mildly thickened The gallbladder wall is bor derline thickened. No biliary ductal dilatation. The common bile duct measures 4 millimeters. Negativ e sonographic Arrieta's sign. IMPRESSION: Cholelithiasis with borderline thickened gallbladder wall. Cannot exclude early or mild acute cholecystitis in the appropriate clinical setting.
[2021-08-21] MEDS ORDERED: POTASSIUM 25 MEQ EFFERV TAB ONE (18:32)
--- NOTE | 2021-08-21 18:48 | ER ---
Nurse's Notes [facility] Name: Yves Sousa Age: 46 yrs Sex: Male : 1975 Arrival Date: 08/21/2021 Time: 14:03 Bed 15 Private MD: Diagnosis: Other cholelithiasis without obstruction;Diarrhea, unspecified;Nausea with vomiting, unspecified Presentation: 08/21 14:12 Chief complaint: Patient states: nausea/vomiting/diarrhea that began 3 days ago. Pt aa5 also c/o abd pain that he describes as burning. Coronavirus screen: At this time, the client does not indicate any symptoms associated with coronavirus-19. Ebola Screen: Patient denies travel to an Ebola-affected area in the 21 days before illness onset. Initial Sepsis Screen: Does the patient meet any 2 criteria? No. Patient's initial sepsis screen is negative. Does the patient have a suspected source of infection? No. Patient's initial sepsis screen is negative. Risk Assessment: Do you want to hurt yourself or someone else? Patient reports no desire to harm self or others. Onset of symptoms was July 2021. 14:12 Acuity: WILMER 3 aa5 14:12 Method Of Arrival: Ambulatory aa5 Historical: - Allergies: 14:13 No Known Allergies; aa5 - PMHx: 14:13 Hypertensive disorder; aa5 - PSHx: 14:13 Appendectomy; aa5 - Immunization history:: Adult Immunizations unknown. - Social history:: Smoking status: Patient denies any tobacco usage or history of. Screenin:37 Abuse screen: Denies threats or abuse. Nutritional screening: No deficits noted. bh1 Tuberculosis screening: No symptoms or risk factors identified. Fall Risk None identified. Assessment: 14:37 General: Appears in no apparent distress. uncomfortable, Behavior is calm, cooperative, bh1 appropriate for age. Pain: Complains of pain in abdomen Pain does not radiate. Pain currently is 6 out of 10 on a pain scale. Quality of pain is described as crampy, Pain began 2-3 days ago. GI: Abdomen is flat, Bowel sounds hyperactive in right upper quadrant, left upper quadrant, right lower quadrant and left lower quadrant Abd is soft X 4 quads Abdomen is tender to palpation Reports cramping, diarrhea. Vital Signs: 14:12 BP 134 / 98; Pulse 99; Resp 18 S; Temp 98.6(TE); Pulse Ox 100% on R/A; Weight 94.35 kg aa5 (R); Height 5 ft. 8 in. (172.72 cm) (R); 14:37 BP 133 / 95; Pulse 92; Resp 18; Pulse Ox 98% on R/A; bh1 15:36 BP 134 / 89; Pulse 88; Resp 20; Pulse Ox 98% on R/A; bh1 17:13 BP 136 / 95; Pulse 80; Resp 18; Pulse Ox 100% on R/A; bh1 18:28 BP 130 / 101; Pulse 88; Resp 18; Pulse Ox 100% on R/A; bh1 19:07 BP 117 / 68; Pulse 88; Resp 18; Temp 98.3(O); Pulse Ox 100% on R/A; bh1 14:12 Body Mass Index 31.63 (94.35 kg, 172.72 cm) [facility] ED Course: 14:03 Patient arrived in ED. mr 14:12 Arm band placed on. [facility] 14:13 Triage completed. [facility] 14:14 Stew Yu PA is PHCP. cp 14:14 Wilmer Landis MD is Attending Physician. cp 14:18 Chaya Tristan, JOSH is Primary Nurse. [facility] 14:41 No apparent distress. Resting quietly. Awaiting ED provider evaluation. [facility] 14:41 Patient has correct armband on for positive identification. Bed in low position. Call [facility] light in reach. Pulse ox on. NIBP on. 14:41 No provider procedures requiring assistance completed. [facility] 15:34 Inserted saline lock: 20 gauge in right antecubital area, using aseptic technique. [facility] Blood collected. 15:37 No apparent distress. Resting quietly. Awaiting lab results, Awaiting CT Scan. [facility] 17:00 CT Abd/Pelvis - IV Contrast Only In Process Unspecified. EDMS 17:13 No apparent distress. Resting quietly. Awaiting lab results, Awaiting radiology results.1 18:10 US Abdomen Limited: RUQ In Process Unspecified. EDMS 18:28 No apparent distress. Awaiting lab results. [facility] 18:47 Lobo Rivera MD is Referral Physician. cp 18:47 Don Tucker MD is Referral Physician. cp 19:07 No apparent distress. Resting quietly. Awaiting disposition. [facility] 19:20 IV discontinued, intact, bleeding controlled. [facility] Administered Medications: 15:33 Drug: NS 0.9% 1000 ml Route: IV; Rate: 1 bolus; Site: right antecubital; [facility] 17:14 Follow up: IV Status: Completed infusion; IV Intake: 1000ml [facility] 15:33 Drug: Zofran (Ondansetron) 4 mg Route: IVP; Site: right antecubital; [facility] 15:34 Follow up: Response: No adverse reaction [facility] 18:27 Drug: Potassium Effervescent Tablet 25 mEq Route: PO; 1 18:27 Follow up: Response: No adverse reaction [facility] 19:07 Follow up: Response: No adverse reaction [facility] 19:17 Drug: LoMOTIL (diphenoxylate-atropine) 2 tabs Route: PO; [facility] 19:17 Follow up: Response: No adverse reaction [facility] Medication: 14:37 VIS not applicable for this client. [facility] Intake: 17:14 IV: 1000ml; Total: 1000ml. [facility] Outcome: 18:48 Discharge ordered by MD. cp 19:19 Discharged to home ambulatory. [facility] 19:19 Condition: good 19:19 Discharge instructions given to patient, family, Instructed on discharge instructions, follow up and referral plans. medication usage, Demonstrated understanding of instructions, follow-up care, medications, Prescriptions given X 2. 19:20 Patient left the ED. [facility] Signatures: Dispatcher [employer] LORIE Nate Mesha FinnPamela RN RN aa5 Stew Yu PA PA cp Hicks, Barbara, RN RN [facility] Corrections: (The following items were deleted from the chart) 14:14 14:13 PSHx: None; aa5 aa5
--- NOTE | 2021-08-21 18:48 | EDPHYS ---
Physician Documentation [facility] Name: Yves Sousa Age: 46 yrs Sex: Male : 1975 Arrival Date: 08/21/2021 Time: 14:03 Bed 15 Private MD: ED Physician Wilmer Landis HPI: 08/21 15:05 This 46 yrs old Male presents to ER via Ambulatory with complaints of cp Diarrhea, Abdominal Pain. 15:05 The patient presents to the emergency department with nausea, that is moderate, cp vomiting, that is intermittent, diarrhea, that is continuous. Onset: The symptoms/episode began/occurred 3 day(s) ago. 15:05 Possible causes: unknown, bad food exposure, ate some watermelon. cp 15:05 Associated signs and symptoms: Pertinent positives: abdominal pain, anorexia, Pertinent cp negatives: constipation, fever, GI bleeding. Severity of symptoms: in the emergency department the symptoms are unchanged despite home interventions. Historical: - Allergies: 14:13 No Known Allergies; aa5 - PMHx: 14:13 Hypertensive disorder; aa5 - PSHx: 14:13 Appendectomy; aa5 - Immunization history:: Adult Immunizations unknown. - Social history:: Smoking status: Patient denies any tobacco usage or history of. ROS: 15:10 Constitutional: Positive for poor PO intake, Negative for body aches, chills, fever. cp 15:10 Eyes: Negative for injury, pain, redness, and discharge. cp 15:10 ENT: Negative for drainage from ear(s), ear pain, sore throat, difficulty swallowing, difficulty handling secretions. 15:10 Cardiovascular: Negative for chest pain. 15:10 Respiratory: Negative for cough, shortness of breath, wheezing. 15:10 Abdomen/GI: Positive for abdominal pain, vomiting, diarrhea, anorexia, Negative for constipation, hematemesis, black/tarry stool, rectal bleeding. 15:10 Skin: Negative for cellulitis, rash. 15:10 Neuro: Negative for altered mental status, headache, weakness. 15:10 : Negative for urinary symptoms. cp 15:10 All other systems are negative. cp Exam: 15:15 Constitutional: The patient appears in no acute distress, alert, awake, cp non-diaphoretic, non-toxic, well developed, well nourished. 15:15 Head/Face: Normocephalic, atraumatic. cp 15:15 Eyes: Periorbital structures: appear normal, Conjunctiva: normal, no exudate, no injection, Sclera: no appreciated abnormality, Lids and lashes: appear normal, bilaterally. 15:15 ENT: External ear(s): are unremarkable, Nose: is normal, Mouth: Lips: moist, Oral mucosa: pink and intact, moist, Posterior pharynx: Airway: no evidence of obstruction, patent. 15:15 Chest/axilla: Inspection: normal, Palpation: is normal, no crepitus, no tenderness. 15:15 Cardiovascular: Rate: normal, Rhythm: regular. 15:15 Respiratory: the patient does not display signs of respiratory distress, Respirations: normal, no use of accessory muscles, no retractions, labored breathing, is not present, Breath sounds: are clear throughout, no decreased breath sounds, no stridor, no wheezing. 15:15 Abdomen/GI: Inspection: abdomen appears normal, Bowel sounds: active, all quadrants, Palpation: soft, in all quadrants, mild abdominal tenderness, in all quadrants, voluntary guarding, is not appreciated, involuntary guarding, is not appreciated. 15:15 Back: CVA tenderness, is absent. Vital Signs: 14:12 BP 134 / 98; Pulse 99; Resp 18 S; Temp 98.6(TE); Pulse Ox 100% on R/A; Weight 94.35 kg aa5 (R); Height 5 ft. 8 in. (172.72 cm) (R); 14:37 BP 133 / 95; Pulse 92; Resp 18; Pulse Ox 98% on R/A; bh1 15:36 BP 134 / 89; Pulse 88; Resp 20; Pulse Ox 98% on R/A; bh1 17:13 BP 136 / 95; Pulse 80; Resp 18; Pulse Ox 100% on R/A; bh1 18:28 BP 130 / 101; Pulse 88; Resp 18; Pulse Ox 100% on R/A; bh1 19:07 BP 117 / 68; Pulse 88; Resp 18; Temp 98.3(O); Pulse Ox 100% on R/A; bh1 14:12 Body Mass Index 31.63 (94.35 kg, 172.72 cm) aa5 MDM: 14:44 Patient medically screened. 18:48 Data reviewed: vital signs, nurses notes, lab test result(s), radiologic studies, CT cp scan. 18:48 Counseling: I had a detailed discussion with the patient and/or guardian regarding: the cp historical points, exam findings, and any diagnostic results supporting the discharge/admit diagnosis, lab results, radiology results, the need for outpatient follow up, a general surgeon, a chemical process analyst, to return to the emergency department if symptoms worsen or persist or if there are any questions or concerns that arise at home. Response to treatment: the patient's symptoms have markedly improved after treatment, and as a result, I will discharge patient. 08/21 14:54 Order name: CBC with Diff; Complete Time: 16:55 08/21 16:56 Interpretation: Reviewed. 08/21 14:54 Order name: CMP; Complete Time: 16:55 08/21 16:56 Interpretation: Normal except: K 3.4; GLUC 110; CRE 1.36; GFR 66; AST 14; CA 8.0; GLOB cp 4.4; A/G 0.8. 08/21 14:54 Order name: Lipase; Complete Time: 16:55 08/21 15:06 Order name: SARS-COV-2 RT PCR (Document "Date of Onset" if Symptomatic); Complete Time: kj1 16:55 08/21 16:25 Order name: CBC Smear Scan; Complete Time: 16:55 [facility] 08/21 14:54 Order name: CT Abd/Pelvis - IV Contrast Only; Complete Time: 17:19 08/21 17:20 Order name: US Abdomen Limited: RUQ; Complete Time: 18:25 08/21 18:31 Interpretation: Report reviewed. 08/21 17:49 Order name: Urine Dipstick-Ancillary; Complete Time: 18:08 [facility] 08/21 18:08 Interpretation: Normal except: UBLD 2+. 08/21 14:54 Order name: IV Saline Lock; Complete Time: 15:34 08/21 14:54 Order name: Labs collected and sent; Complete Time: 15:34 08/21 14:54 Order name: Urine Dipstick-Ancillary (obtain specimen); Complete Time: 17:50 08/21 17:26 Order name: NPO; Complete Time: 17:50 cp Administered Medications: 15:33 Drug: NS 0.9% 1000 ml Route: IV; Rate: 1 bolus; Site: right antecubital; [facility] 17:14 Follow up: IV Status: Completed infusion; IV Intake: 1000ml [facility] 15:33 Drug: Zofran (Ondansetron) 4 mg Route: IVP; Site: right antecubital; [facility] 15:34 Follow up: Response: No adverse reaction [facility] 18:27 Drug: Potassium Effervescent Tablet 25 mEq Route: PO; [facility] 18:27 Follow up: Response: No adverse reaction [facility] 19:07 Follow up: Response: No adverse reaction [facility] 19:17 Drug: LoMOTIL (diphenoxylate-atropine) 2 tabs Route: PO; [facility] 19:17 Follow up: Response: No adverse reaction [facility] Disposition Summary: 08/21/21 18:48 Discharge Ordered Location: Home cp Problem: new cp Symptoms: have improved cp Condition: Stable cp Diagnosis - Other cholelithiasis without obstruction cp - Diarrhea, unspecified cp - Nausea with vomiting, unspecified cp Followup: cp - With: Lobo Rivera MD - When: 2 - 3 days - Reason: Recheck today's complaints Followup: cp - With: Don Tucker MD - When: 2 - 3 days - Reason: gallstones Discharge Instructions: - Discharge Summary Sheet cp - Food Choices to Help Relieve Diarrhea, Adult cp - Diarrhea, Adult cp - Nausea and Vomiting, Adult cp - Cholelithiasis cp Forms: - Medication Reconciliation Form cp - Thank You Letter cp - Antibiotic Education cp - Prescription Opioid Use cp - Work release form [facility] Prescriptions: - Protonix 40 mg Oral Tablet - take 1 tablet by ORAL route once daily; 30 tablet; Refills: 0, Product cp Selection Permitted - Zofran 4 mg Oral Tablet - take 1 tablet by ORAL route every 12 hours As needed; 20 tablet; Refills: 0, cp Product Selection Permitted - Lomotil 2.5-0.025 mg Oral Tablet - take 1 tablet by ORAL route every 6 hours As needed; 20 tablet; Refills: 0, cp Product Selection Permitted Addendum: 08/25/2021 19:15 Co-signature as Attending Physician, Wilmer Landis MD I agree with the assessment and [facility] plan of care. Signatures: Dispatcher [employer] Wilmer Almonte MD MD [facility] Pamela Briseno, RN RN aa5 Stew Yu PA PA Chaya Harris RN RN bh1 Corrections: (The following items were deleted from the chart) 08/21 14:14 14:13 PSHx: None; aa5 aa5 17:50 17:49 Ova and Parasites+MR.LAB.BRZ ordered. EDMS EDMS 17:50 17:49 Rotavirus Antigen+BA.LAB.BRZ ordered. EDMS EDMS 17:50 17:49 Stool Culture+BA.LAB.BRZ ordered. EDMS EDMS 17:50 17:49 C.difficile GDH Ag \\T\\ Toxin AB+LAB.BRZ ordered. EDMS EDMS
[2021-08-21] MEDS ORDERED: DIPHENOX/ATROP SULF 1 TAB PO ONE (19:19)
[2021-08-21 19:34] VITALS: O2SAT 100
[2021-08-21 19:42] VITALS: BP 117/68; TEMP 98.3
== END 2021-08-21 19:20 | disposition home or self-care (01) ==
LOC: ER 13:58
DX: K80.80 Other cholelithiasis without obstruction (principal); R11.2 Nausea with vomiting, unspecified; I10 Essential (primary) hypertension; Z20.822 Contact with and (suspected) exposure to COVID-19
CPT/HCPCS: 36415; 74177; 76705; 80053; 81003; 83690; 85025; 96361; 96374; 99284; J2405; J7030; Q9967; U0003